=== PATIENT | female | born 2000 | race Caucasian/White ===

== ENCOUNTER 2024-09-16 12:59 | Emergency (ER) | payer OTHER, SELFPAY ==
[2024-09-16 13:05] VITALS: BP 152/96
--- NOTE | 2024-09-16 13:07 | ED.GENMED ---
ED Provider Triage
<Raiza Moralez PA-C - Last Filed: 09/16/24 18:35>
-
Patient seen by provider in Triage?: Seen in Triage
Attestation: A medical screening examination has been initiated by a qualified medical provider. Based on the assessment performed at this time, it has been determined that an emergent medical condition may exist and the patient has been informed
that further medical evaluation and possible additional diagnostic testing may be needed.
HPI: 24yoF here with RUQ pain x 1 week. Worse with eating. Radiates to back and lower abd pain. +Nausea, diarrhea. Low grade fever 2 days ago, none since.
GENERAL: Alert , in no apparent distress
EYE: No visual abnormalities.
NECK: Trachea midline
ENT: No visible abnormalities.
LUNGS: No acute respiratory distress
NEUROLOGICAL: Alert and oriented
SKIN: Skin intact. No visible changes.
MUSCULOSKELETAL: Moving extremities normally
PSYCH: Normal and appropriate interaction.
This is a medical evaluation conducted in person to initiate diagnostic evaluation and provide initial therapeutics. Please see further documentation by the treating clinician.
Abdominal labs, HCG, and CT abdomen ordered.
History of Present Illness
<Raiza Moralez PA-C - Last Filed: 09/16/24 18:35>
General
Chief Complaint: Abdominal Symptoms
Time Seen by Provider: 09/16/24 14:23
<Sherri Schmidt NP - Last Filed: 09/16/24 20:35>
General
Source: patient
Exam Limitations: none
Nursing documentation reviewed up to this point in time: agreed with
History of Present Illness
History of Present Illness:
Patient to ED wtih comlaint of right upper and lower quadrant abd. pain. Symptoms started 1 week ago. Reports n/v/d. Had a low grade fever a few days ago but normal temp since. Brought self to ED for eval. No prior history of same.
Past History
<Sherri Schmidt NP - Last Filed: 09/16/24 20:35>
Past History
ED Past Medical History: None
ED Past Surgical History: Tonsilectomy and Other ([place] teeth)
Social History
Tobacco: Non-smoker
Alcohol: Occasional
Drug: None
Living: with family
Review of Systems
<Sherri Schmidt NP - Last Filed: 09/16/24 20:35>
Review of Systems
Allergies reviewed?: Yes
All Other Systems: ROS reviewed and negative except as documented in HPI and ROS
Constitutional: Reports no symptoms
EENT: Reports no symptoms
Respiratory: Reports no symptoms
Cardiac: Reports no symptoms
ABD/GI: Reports abdominal pain (Right upper and lower quadrant abd. pain), nausea, vomiting (No vomiting today.), diarrhea and anorexia
: Reports no symptoms
Musculoskeletal: Reports no symptoms
Skin: Reports no symptoms
Neurological: Reports no symptoms
Psychiatric: Reports no symptoms
Phy Exam
<Sherri Schmidt NP - Last Filed: 09/16/24 20:35>
General Physical Exam
General Presentation: well appearing and no apparent distress
General age: appears stated age
General Skin: warm and dry
General Habitus: normal
General Mental: alert
Cardiovascular Exam
Cardiovascular Exam: regular rate/rhythm and no edema
Gastrointestinal Exam
Gastrointestinal Exam: normal bowel sounds, soft, no organomegaly, non distended and no cva tenderness
Palpation: left upper quadrant: No tenderness, left lower quadrant: No tenderness, right upper quadrant: Moderate tenderness and right lower quadrant: Moderate tenderness
Musculoskeletal Exam
Musculoskeletal Exam: full ROM
Skin Exam
Skin Exam: normal color, warm/dry and no rash
Psychiatric Exam
Psychiatric Exam: normal mood/affect
Course
<Raiza Moralez PA-C - Last Filed: 09/16/24 18:35>
Orders/Labs/Results
Orders:
Orders
09/16/24 13:10
Test Result ONCE
09/16/24 13:12
CT Abd/pelvis W Iv Cont Urgent
Comment:
Reason For Exam: RLQ, RUQ pain
09/16/24 13:16
Complete Blood Count/With Diff Urgent
Comprehensive Metabolic Panel Urgent
HCG, Serum Qualitative Screen Urgent
Lipase Urgent
09/16/24 15:24
US Abdomen Complete/Upper Urgent
Comment:
Reason For Exam: RUQ pain
Abnormal Lab Results
09/16/24
13:16
MPV 11.1 H fL
(7.4-10.4)
Absolute Lymphs (auto) 1.1 L 10^3/uL
(1.2-3.4)
09/16/24 13:16
09/16/24 13:16
Vital Signs
Initial and Last Documented VS:
Initial Vital Signs
Temp Pulse Resp BP Pulse Ox
98.7 F 109 16 152/96 100
09/16/24 13:05 09/16/24 13:05 09/16/24 13:05 09/16/24 13:05 09/16/24 13:05
Last Documented Vital Signs
Temp Pulse Resp BP Pulse Ox
98.7 F 87 16 132/81 100
09/16/24 16:00 09/16/24 16:00 09/16/24 16:00 09/16/24 16:00 09/16/24 13:05
Kiannalt;Sherri Schmidt NP - Last Filed: 09/16/24 20:35>
Orders/Labs/Results
Orders:
Orders
09/16/24 13:10
Test Result ONCE
09/16/24 13:12
CT Abd/pelvis W Iv Cont Urgent
Comment:
Reason For Exam: RLQ, RUQ pain
09/16/24 13:16
Complete Blood Count/With Diff Urgent
Comprehensive Metabolic Panel Urgent
HCG, Serum Qualitative Screen Urgent
Lipase Urgent
09/16/24 15:24
US Abdomen Complete/Upper Urgent
Comment:
Reason For Exam: RUQ pain
Abnormal Lab Results
09/16/24
13:16
MPV 11.1 H fL
(7.4-10.4)
Absolute Lymphs (auto) 1.1 L 10^3/uL
(1.2-3.4)
09/16/24 13:16
09/16/24 13:16
Vital Signs
Initial and Last Documented VS:
Initial Vital Signs
Temp Pulse Resp BP Pulse Ox
98.7 F 109 16 152/96 100
09/16/24 13:05 09/16/24 13:05 09/16/24 13:05 09/16/24 13:05 09/16/24 13:05
Last Documented Vital Signs
Temp Pulse Resp BP Pulse Ox
98.7 F 87 16 132/81 100
09/16/24 16:00 09/16/24 16:00 09/16/24 16:00 09/16/24 16:00 09/16/24 13:05
<Sherri Schmidt NP - Last Filed: 09/16/24 20:35>
*Radiology
Radiology exam reviewed: radiology read reviewed
*Pulse Oximetry
Patient hypoxic: no
*Critical Care Note
Total Time (30-74mins, 75-104mins- exclusive of procedures): Not Applicable
<Sherri Schmidt NP - Last Filed: 09/16/24 20:35>
Update Note
Update Note:
Patient to ED wtih complaint of right sided abdominal pain associated with n/v/d and anorexia. Labs, CT and US reviewed. No concerning findings on exam today. Discussed CT and US results with patient. WIll discharge home, close follow up with
PCP. She was given instructions on s/s tor eturn to ED and she is agreeable to plan.
ED Attending Note
<Raiza Moralez PA-C - Last Filed: 09/16/24 18:35>
-
Portions of this chart may have been created with voice recognition software.� Occasional wrong word or��sound alike� substitutions may have occurred due to the inherent limitations of voice recognition software.
Discharge Plan
Departure
Patient Disposition: Home (Routine Discharge)
Date of Disposition: 09/16/24
Time of Disposition: 17:56
Patient with high blood pressure during this ER visit?: No
Condition: Good
Covid-19: Not Applicable
Discharge Problem:
Abdominal pain
Instructions: Abdominal Pain
Referrals:
Sravanthi Aguilar PA-C [Family Provider] - Tomorrow
Activity Restrictions/Additional Instructions:
Return to the emergency department for any changes in/worsening of your symptoms
Interventions
Interventions:
*Risk Screen - Suicide Last Done: 09/16/24 13:09
*General Assessment Last Done: 09/16/24 13:09
*Neglect/Abuse Screening Last Done: 09/16/24 13:09
ED- Fall Risk Assessment Last Done: 09/16/24 18:14
*ED COVID-19 Vaccine History Last Done: 09/16/24 13:09
*Nursing Disposition Last Done: 09/16/24 18:14
PJ-Wnqvar-Xwgnhronfz Assessment Last Done: 09/16/24 16:27
Discharge Date and Time
Discharge Date/Time: 09/16/24 18:15
Print Language: [id number]
[2024-09-16 13:36] LABS: % Basophils 0.2 % (0-2); % Eosinophils 0.6 % (0-6); % Immature Granulocytes 0.2 % (0-0.5); % Monocytes 5.2 % (1.7-9.3); % Neutrophils 71.8 % (42.2-75.2); Absolute Lymphocytes 1.1 10^3/uL (1.2-3.4); Absolute Monocytes 0.3 10^3/uL (0.1-0.6); Absolute Neutrophils 3.5 10^3/uL (1.4-6.5); Hematocrit 41.4 % (37.0-47.0); Mean Corp Hgb Conc. 33.8 g/dL (33.0-37.0); Mean Corpuscular Hgb 29.9 pg (27.0-31.0); Mean Corpuscular Volume 88.5 fL (81.0-99.0); Mean Platelet Volume 11.1 fL (7.4-10.4); Nucleated Red Blood Cells % 0 %; Platelet Count 185 10^3/uL (130-400); Red Blood Cell Count 4.68 10^6/uL (4.20-5.40); Red Cell Dist. Width 11.9 % (11.5-14.5); White Blood Cell Count 4.8 10^3/uL (4.8-10.8)
[2024-09-16 13:37] LABS: HCG, Serum Qualitative Screen Negative
[2024-09-16 13:41] LABS: ALT (SGPT) 28 U/L (0-35); AST (SGOT) 24 U/L (14-36); Albumin 4.8 g/dl (3.5-5.0); Alkaline Phosphatase 56 U/L (38-126); Blood Urea Nitrogen 11 mg/dl (7-17); Calcium 9.5 mg/dl (8.4-10.2); Carbon Dioxide 26 mmol/L (22-30); Chloride 101 mmol/L (98-107); Glucose 89 mg/dl (70-99); Lipase 62 U/L (23-300); Potassium 3.8 mmol/L (3.5-5.1); Sodium 137 mmol/L (135-145); Total Bilirubin 0.4 mg/dl (0.2-1.3); Total Protein 7.9 g/dl (6.3-8.2); eGFR > 60.00
[2024-09-16 16:00] VITALS: BP 132/81
== END 2024-09-16 18:15 | disposition home or self-care (01) ==
LOC: EMR 12:59
PROVIDERS: Physician Assistant; EMERGENCY PHYSICIAN Emergency Medicine; FAMILY PHYSICIAN Physician Assistant
DX: R10.11 Right upper quadrant pain (principal); R10.31 Right lower quadrant pain
CPT/HCPCS: 99284; 74177; 76700; 80053; 83690; 84703; 85025; Q9967